=== PATIENT | male | born 1995 | race Caucasian/White ===

== ENCOUNTER 2019-02-12 19:54 | Emergency (ER) | payer SELFPAY ==
[~2019-02-12] VITALS: Ht 165.1 cm; Wt 52.2 kg
[2019-02-12 19:56] VITALS: BP 110/50; Ht 165.1 cm; Wt 52.2 kg
== END 2019-02-12 21:14 | disposition other institution (70) ==
LOC: ED 19:54
DX: S40.011A Contusion of right shoulder, initial encounter (principal); Y04.8XXA Assault by other bodily force, initial encounter; Y93.89 Activity, other specified; Y92.89 Other specified places as the place of occurrence of the external cause; Y99.8 Other external cause status

== ENCOUNTER 2019-02-12 19:54 | Emergency (ER) | payer OTHER | END 2019-02-12 21:14 | disposition other institution (70) | LOC: ED 19:54 | DX: Z02.89 Encounter for other administrative examinations (principal) ==